=== PATIENT | female | born 1945 | race Caucasian/White ===

== ENCOUNTER 2022-07-26 08:04 | Inpatient (IN) | payer MEDICARE ==
[2022-07-26] MEDS ORDERED: FLU VACC QS2022-23(65YR UP)/PF 240 MCG/0.7 ML SYRINGE IM ONE (19:15)
[2022-07-26] MEDS ORDERED: Non-Formulary Item 1 EACH (Aluminum & Magnesium Hydroxide [Maalox] 30 ML Udcup) PO PRN (19:19)
[2022-07-26] MEDS ORDERED: Guaifenesin DM 100-10/5 ML UDCUP PO PRN (19:19)
[2022-07-26] MEDS ORDERED: Acetaminophen 325 MG TAB PO PRN (19:25)
[2022-07-26] MEDS ORDERED: Ondansetron ODT 4 MG TAB PO PRN (19:25)
[2022-07-26] MEDS ORDERED: Bisacodyl 5 MG TAB PO PRN (19:25)
[2022-07-26] MEDS ORDERED: Acetaminophen 650 MG Suppository PR PRN (19:25)
[2022-07-26] MEDS ORDERED: Bisacodyl 10 MG SUPP PR PRN (19:25)
[2022-07-26] MEDS ORDERED: Artificial Tear Sol 15 ML BOT EA EYE PRN (19:29)
[2022-07-26] MEDS ORDERED: Promethazine HCl 25 MG SUPP PR PRN (19:29)
[2022-07-26] MEDS ORDERED: Sodium Chloride 0.65% Nasal 44 ML BOT EA NARE PRN (19:29)
[2022-07-26] MEDS: Mirtazapine 15 MG TAB PO SCH (21:21)
[2022-07-26] MEDS: guaiFENesin ER 600 MG TAB PO SCH (21:21)
[2022-07-26] MEDS: Heparin 5,000 UNITS/ML VIAL SC SCH (21:25)
[2022-07-26 22:38] LABS: SARS-CoV-2 NAA Rapid Test Not Detected (NotDetected)
[2022-07-26] MEDS ORDERED: Ondansetron ODT 4 MG TAB SL PRN (22:45)
[2022-07-27] MEDS: Levothyroxine Sodium 88 MCG TAB PO SCH (05:09)
[2022-07-27] MEDS: Senokot S 8.6-50 MG TAB PO PRN (05:12)
[2022-07-27 06:03] LABS: #Basophils 0.1 thou/uL (0.0-0.2); #Lymphocytes 1.3 thou/uL (1.20-3.40); #Monocytes 0.9 thou/uL (0.11-0.59); #Neutrophils 13.2 thou/uL (1.40-6.50); %Basophils 0.4 % (0.0-1.0); %Eosinophils 0.3 % (0.0-10.0); %Lymphocytes 8.3 % (21.0-51.0); %Neutrophils 84.9 % (42.0-75.0); Hemoglobin 8.3 g/dL (12.0-16.0); Hypochromia MODERATE=16-30 cells (100X) (0-5/hpf); MDiff Complete? YES; Mean Corpuscular HGB CONC 29.3 g/dL (32.0-36.0); Mean Corpuscular Hemoglobin 19.6 pg (27.0-31.0); Mean Corpuscular Volume 66.9 fl (78.0-98.0); Mean Platelet Volume 7.4 fL (7.4-10.4); Microcytosis MODERATE=15-30 cells (100X) (0-5/hpf); Ovalocytes SLIGHT = 2-5 cells (100X) (0-1/hpf); Platelet Count 263 thou/uL (130-400); Red Blood Cell (RBC) Count 4.23 mill/uL (4.20-5.40); Tear Drops SLIGHT = 2-5 cells (100X) (0-1/hpf); White Blood Cell (WBC) Count 15.6 thou/uL (4.8-10.8)
[2022-07-27 06:10] LABS: ALT (SGPT) 24 U/L (8-55); AST (SGOT) 16 U/L (5-34); Albumin 3.8 g/dL (3.4-4.8); Alkaline Phosphatase 58 U/L (40-110); Anion Gap 16 mmol/L (10-20); BUN (Urea Nitrogen) 68 mg/dL (9.8-20.1); Calc. Creatinine Clearance 20 mL/min (70-130); Carbon Dioxide 19 mmol/L (23-31); Chloride 107 mmol/L (98-107); Estimated GFR 25; Globulin 3.7 g/dL (2.4-3.5); Glucose 91 mg/dL (83-110); Protein, Total 7.5 g/dL (5.8-8.1); Sodium 138 mmol/L (136-145)
[2022-07-27] MEDS: guaiFENesin ER 600 MG TAB PO SCH ×2 (08:55→21:03)
[2022-07-27] MEDS: predniSONE 20 MG TAB PO SCH (08:55)
[2022-07-27] MEDS: Heparin 5,000 UNITS/ML VIAL SC SCH ×2 (08:56→21:05)
[2022-07-27] MEDS ORDERED: Mometasone 200 MCG/Formoterol 5 MCG 120 PUFF INHALER INH SCH (09:00)
[2022-07-27] MEDS ORDERED: Mometasone/Formoterol 200/5 60 PUFF INH SCH (09:45)
[2022-07-27] MEDS: Benzonatate 100 MG CAP PO PRN (15:16)
[2022-07-27] MEDS: Sertraline 100 MG TAB PO SCH (17:28)
[2022-07-27] MEDS: Mag-Al Plus 1200 MG/1200 MG/120 MG/30 ML UDCUP PO PRN (18:06)
[2022-07-27] MEDS: Mometasone/Formoterol 200/5 60 PUFF INH SCH (21:01)
[2022-07-27] MEDS: Folic Acid 1 MG TAB PO SCH (21:03)
[2022-07-27] MEDS: Mirtazapine 15 MG TAB PO SCH (21:03)
[2022-07-28] MEDS: Levothyroxine Sodium 88 MCG TAB PO SCH (05:31)
[2022-07-28] MEDS: predniSONE 20 MG TAB PO SCH (09:34)
[2022-07-28] MEDS: Mometasone/Formoterol 200/5 60 PUFF INH SCH ×2 (09:35→21:33)
[2022-07-28] MEDS: guaiFENesin ER 600 MG TAB PO SCH ×2 (09:37→21:35)
[2022-07-28] MEDS: Heparin 5,000 UNITS/ML VIAL SC SCH ×2 (09:37→21:35)
[2022-07-28] MEDS: Sertraline 100 MG TAB PO SCH (17:43)
[2022-07-28] MEDS: Folic Acid 1 MG TAB PO SCH (21:34)
[2022-07-28] MEDS: Mirtazapine 15 MG TAB PO SCH (21:35)
[2022-07-29] MEDS: Levothyroxine Sodium 88 MCG TAB PO SCH (06:04)
[2022-07-29 06:07] LABS: #Basophils 0.1 thou/uL (0.0-0.2); #Lymphocytes 1.4 thou/uL (1.20-3.40); #Monocytes 0.8 thou/uL (0.11-0.59); #Neutrophils 13.2 thou/uL (1.40-6.50); %Basophils 0.5 % (0.0-1.0); %Eosinophils 0.3 % (0.0-10.0); %Lymphocytes 8.9 % (21.0-51.0); %Monocytes 5.4 % (0.0-10.0); Hemoglobin 7.6 g/dL (12.0-16.0); Mean Corpuscular HGB CONC 30.1 g/dL (32.0-36.0); Mean Corpuscular Hemoglobin 19.9 pg (27.0-31.0); Mean Corpuscular Volume 66.3 fl (78.0-98.0); Mean Platelet Volume 8.9 fL (7.4-10.4); Platelet Count 237 thou/uL (130-400); RBC Distribution Width 17.1 % (11.5-14.5); Red Blood Cell (RBC) Count 3.82 mill/uL (4.20-5.40); White Blood Cell (WBC) Count 15.6 thou/uL (4.8-10.8)
[2022-07-29 06:21] LABS: ALT (SGPT) 27 U/L (8-55); AST (SGOT) 14 U/L (5-34); Albumin 3.6 g/dL (3.4-4.8); Alkaline Phosphatase 52 U/L (40-110); Anion Gap 14 mmol/L (10-20); BUN (Urea Nitrogen) 64 mg/dL (9.8-20.1); Bilirubin, Total 0.8 mg/dL (0.2-1.2); Calc. Creatinine Clearance 20 mL/min (70-130); Calcium 9.1 mg/dL (7.8-10.44); Carbon Dioxide 17 mmol/L (23-31); Chloride 109 mmol/L (98-107); Estimated GFR 26; Globulin 3.3 g/dL (2.4-3.5); Glucose 88 mg/dL (83-110); Potassium 4.2 mmol/L (3.5-5.1); Protein, Total 6.9 g/dL (5.8-8.1); Sodium 136 mmol/L (136-145)
[2022-07-29] MEDS: Heparin 5,000 UNITS/ML VIAL SC SCH (09:36)
[2022-07-29] MEDS: Mometasone/Formoterol 200/5 60 PUFF INH SCH ×2 (09:36→21:17)
[2022-07-29] MEDS: predniSONE 20 MG TAB PO SCH (09:39)
[2022-07-29] MEDS: guaiFENesin ER 600 MG TAB PO SCH ×2 (09:40→21:27)
[2022-07-29] MEDS: Benzonatate 100 MG CAP PO PRN (15:36)
[2022-07-29] MEDS: Cepastat Lozenges 1 LOZ PO PRN (16:32)
[2022-07-29] MEDS: Sertraline 100 MG TAB PO SCH (16:32)
[2022-07-29] MEDS: Mirtazapine 15 MG TAB PO SCH (21:26)
[2022-07-29] MEDS: Folic Acid 1 MG TAB PO SCH (21:26)
[2022-07-30 05:44] LABS: #Eosinphils 0.1 thou/uL (0.0-0.7); #Lymphocytes 1.4 thou/uL (1.20-3.40); #Monocytes 0.8 thou/uL (0.11-0.59); #Neutrophils 11.9 thou/uL (1.40-6.50); %Basophils 0.2 % (0.0-1.0); %Eosinophils 0.4 % (0.0-10.0); %Lymphocytes 10.1 % (21.0-51.0); %Monocytes 5.7 % (0.0-10.0); %Neutrophils 83.6 % (42.0-75.0); Hemoglobin 8.1 g/dL (12.0-16.0); Mean Corpuscular HGB CONC 30.1 g/dL (32.0-36.0); Mean Corpuscular Hemoglobin 19.9 pg (27.0-31.0); Mean Corpuscular Volume 66.1 fl (78.0-98.0); Mean Platelet Volume 7.7 fL (7.4-10.4); Platelet Count 229 thou/uL (130-400); RBC Distribution Width 17.4 % (11.5-14.5); Red Blood Cell (RBC) Count 4.06 mill/uL (4.20-5.40); White Blood Cell (WBC) Count 14.3 thou/uL (4.8-10.8)
[2022-07-30] MEDS: Levothyroxine Sodium 88 MCG TAB PO SCH (05:44)
[2022-07-30] MEDS: predniSONE 5 MG TAB PO SCH (08:07)
[2022-07-30] MEDS: Mometasone/Formoterol 200/5 60 PUFF INH SCH ×2 (08:07→20:18)
[2022-07-30] MEDS: guaiFENesin ER 600 MG TAB PO SCH ×2 (08:07→20:17)
[2022-07-30] MEDS ORDERED: Lactated Ringer's 500 ML IV SCH (12:00)
[2022-07-30] MEDS ORDERED: Enoxaparin Sodium 60 MG/0.6 ML SYRINGE SC SCH (12:30)
[2022-07-30 12:53] LABS: Troponin I Less than 0.010 ng/mL (< 0.028)
[2022-07-30] MEDS ORDERED: Heparin 5,000 UNITS/ML VIAL SC SCH (15:00)
[2022-07-30] MEDS: Sertraline 100 MG TAB PO SCH (16:57)
[2022-07-30] MEDS: Rosuvastatin 10 MG TAB PO SCH (20:18)
[2022-07-30] MEDS: Mirtazapine 15 MG TAB PO SCH (20:18)
[2022-07-30] MEDS: Folic Acid 1 MG TAB PO SCH (20:18)
[2022-07-31] MEDS: Levothyroxine Sodium 88 MCG TAB PO SCH (05:36)
[2022-07-31 05:50] LABS: #Basophils 0.1 thou/uL (0.0-0.2); #Eosinphils 0.1 thou/uL (0.0-0.7); #Lymphocytes 0.7 thou/uL (1.20-3.40); #Monocytes 1.2 thou/uL (0.11-0.59); #Neutrophils 15.6 thou/uL (1.40-6.50); %Basophils 0.7 % (0.0-1.0); %Eosinophils 0.4 % (0.0-10.0); %Lymphocytes 4.1 % (21.0-51.0); %Monocytes 6.7 % (0.0-10.0); %Neutrophils 88.3 % (42.0-75.0); Hemoglobin 7.6 g/dL (12.0-16.0); Mean Corpuscular HGB CONC 30.8 g/dL (32.0-36.0); Mean Corpuscular Hemoglobin 20.2 pg (27.0-31.0); Mean Corpuscular Volume 65.6 fl (78.0-98.0); Mean Platelet Volume 7.9 fL (7.4-10.4); Platelet Count 206 thou/uL (130-400); RBC Distribution Width 17.3 % (11.5-14.5); Red Blood Cell (RBC) Count 3.78 mill/uL (4.20-5.40); White Blood Cell (WBC) Count 17.7 thou/uL (4.8-10.8)
[2022-07-31 05:57] LABS: ALT (SGPT) 34 U/L (8-55); AST (SGOT) 20 U/L (5-34); Albumin 3.5 g/dL (3.4-4.8); Alkaline Phosphatase 56 U/L (40-110); Anion Gap 13 mmol/L (10-20); BUN (Urea Nitrogen) 41 mg/dL (9.8-20.1); Calc. Creatinine Clearance 24 mL/min (70-130); Calcium 9.1 mg/dL (7.8-10.44); Carbon Dioxide 17 mmol/L (23-31); Chloride 111 mmol/L (98-107); Estimated GFR 32; Globulin 3.4 g/dL (2.4-3.5); Glucose 111 mg/dL (83-110); Potassium 4.2 mmol/L (3.5-5.1); Protein, Total 6.9 g/dL (5.8-8.1); Sodium 137 mmol/L (136-145)
[2022-07-31] MEDS: Mometasone/Formoterol 200/5 60 PUFF INH SCH ×2 (07:35→21:04)
[2022-07-31] MEDS: guaiFENesin ER 600 MG TAB PO SCH ×2 (08:50→21:05)
[2022-07-31] MEDS: Enoxaparin Sodium 60 MG/0.6 ML SYRINGE SC SCH (08:50)
[2022-07-31] MEDS: Aspirin 81 mg Enteric Coated Tablet PO SCH (08:51)
[2022-07-31] MEDS: predniSONE 5 MG TAB PO SCH (08:51)
[2022-07-31] MEDS: Sertraline 100 MG TAB PO SCH (17:00)
[2022-07-31] MEDS: Folic Acid 1 MG TAB PO SCH (21:05)
[2022-07-31] MEDS: Rosuvastatin 10 MG TAB PO SCH (21:06)
[2022-07-31] MEDS: Mirtazapine 15 MG TAB PO SCH (21:06)
[2022-08-01 05:56] LABS: #Basophils 0.1 thou/uL (0.0-0.2); #Eosinphils 0.1 thou/uL (0.0-0.7); #Monocytes 0.9 thou/uL (0.11-0.59); #Neutrophils 12.3 thou/uL (1.40-6.50); %Basophils 0.4 % (0.0-1.0); %Eosinophils 0.7 % (0.0-10.0); %Lymphocytes 6.9 % (21.0-51.0); %Monocytes 5.9 % (0.0-10.0); %Neutrophils 86.1 % (42.0-75.0); Hemoglobin 7.5 g/dL (12.0-16.0); Mean Corpuscular HGB CONC 29.9 g/dL (32.0-36.0); Mean Corpuscular Hemoglobin 19.9 pg (27.0-31.0); Mean Corpuscular Volume 66.4 fl (78.0-98.0); Platelet Count 200 thou/uL (130-400); Red Blood Cell (RBC) Count 3.76 mill/uL (4.20-5.40); White Blood Cell (WBC) Count 14.3 thou/uL (4.8-10.8)
[2022-08-01] MEDS: Levothyroxine Sodium 88 MCG TAB PO SCH (06:14)
[2022-08-01] MEDS: Mometasone/Formoterol 200/5 60 PUFF INH SCH ×2 (07:54→21:14)
[2022-08-01] MEDS: guaiFENesin ER 600 MG TAB PO SCH ×2 (07:56→21:09)
[2022-08-01] MEDS: Aspirin 81 mg Enteric Coated Tablet PO SCH (07:56)
[2022-08-01] MEDS: predniSONE 5 MG TAB PO SCH (07:56)
[2022-08-01] MEDS: Enoxaparin Sodium 60 MG/0.6 ML SYRINGE SC SCH (07:58)
[2022-08-01] MEDS: Sertraline 100 MG TAB PO SCH (16:45)
[2022-08-01] MEDS: Mirtazapine 15 MG TAB PO SCH (21:09)
[2022-08-01] MEDS: Rosuvastatin 10 MG TAB PO SCH (21:09)
[2022-08-01] MEDS: Folic Acid 1 MG TAB PO SCH (21:09)
[2022-08-02 05:54] LABS: #Basophils 0.1 thou/uL (0.0-0.2); #Eosinphils 0.1 thou/uL (0.0-0.7); #Lymphocytes 0.9 thou/uL (1.20-3.40); #Monocytes 0.9 thou/uL (0.11-0.59); #Neutrophils 12.1 thou/uL (1.40-6.50); %Basophils 0.6 % (0.0-1.0); %Eosinophils 0.6 % (0.0-10.0); %Lymphocytes 6.4 % (21.0-51.0); %Monocytes 6.4 % (0.0-10.0); %Neutrophils 86.1 % (42.0-75.0); Hemoglobin 7.5 g/dL (12.0-16.0); Mean Corpuscular HGB CONC 29.5 g/dL (32.0-36.0); Mean Corpuscular Hemoglobin 19.7 pg (27.0-31.0); Mean Corpuscular Volume 66.7 fl (78.0-98.0); Mean Platelet Volume 8.3 fL (7.4-10.4); Platelet Count 205 thou/uL (130-400); Red Blood Cell (RBC) Count 3.81 mill/uL (4.20-5.40)
[2022-08-02] MEDS: Levothyroxine Sodium 88 MCG TAB PO SCH (06:07)
[2022-08-02 06:12] LABS: ALT (SGPT) 33 U/L (8-55); AST (SGOT) 15 U/L (5-34); Albumin 3.3 g/dL (3.4-4.8); Alkaline Phosphatase 52 U/L (40-110); Anion Gap 15 mmol/L (10-20); BUN (Urea Nitrogen) 36 mg/dL (9.8-20.1); Bilirubin, Total 0.8 mg/dL (0.2-1.2); Calc. Creatinine Clearance 24 mL/min (70-130); Calcium 8.7 mg/dL (7.8-10.44); Carbon Dioxide 16 mmol/L (23-31); Chloride 108 mmol/L (98-107); Estimated GFR 31; Globulin 3.5 g/dL (2.4-3.5); Glucose 102 mg/dL (83-110); Protein, Total 6.8 g/dL (5.8-8.1); Sodium 135 mmol/L (136-145)
[2022-08-02] MEDS: predniSONE 5 MG TAB PO SCH (07:56)
[2022-08-02] MEDS: guaiFENesin ER 600 MG TAB PO SCH ×2 (07:56→20:58)
[2022-08-02] MEDS: Mometasone/Formoterol 200/5 60 PUFF INH SCH ×2 (07:57→20:56)
[2022-08-02] MEDS: Enoxaparin Sodium 60 MG/0.6 ML SYRINGE SC SCH (07:58)
[2022-08-02] MEDS: Aspirin 81 mg Enteric Coated Tablet PO SCH (08:00)
[2022-08-02] MEDS ORDERED: EPINEPHrine 1 MG/ML AMP IVP PRN (13:20)
[2022-08-02] MEDS: Senokot S 8.6-50 MG TAB PO PRN (16:52)
[2022-08-02] MEDS: Sertraline 100 MG TAB PO SCH (16:52)
[2022-08-02] MEDS: Folic Acid 1 MG TAB PO SCH (20:57)
[2022-08-02] MEDS: Rosuvastatin 10 MG TAB PO SCH (20:58)
[2022-08-02] MEDS: Mirtazapine 15 MG TAB PO SCH (20:58)
[2022-08-03 02:33] VITALS: BMI 23.8
[2022-08-03] MEDS: Levothyroxine Sodium 88 MCG TAB PO SCH (06:08)
[2022-08-03] MEDS: predniSONE 5 MG TAB PO SCH (08:45)
[2022-08-03] MEDS: Mometasone/Formoterol 200/5 60 PUFF INH SCH ×2 (08:46→20:55)
[2022-08-03] MEDS: guaiFENesin ER 600 MG TAB PO SCH ×2 (08:46→20:56)
[2022-08-03] MEDS: Aspirin 81 mg Enteric Coated Tablet PO SCH (08:46)
[2022-08-03] MEDS: Enoxaparin Sodium 60 MG/0.6 ML SYRINGE SC SCH (08:47)
[2022-08-03 10:21] LABS: Hemoglobin 7.5 g/dL (12.0-16.0)
[2022-08-03] MEDS: Cepastat Lozenges 1 LOZ PO PRN (13:10)
[2022-08-03] MEDS: Sertraline 100 MG TAB PO SCH (16:03)
[2022-08-03] MEDS: Mag-Al Plus 1200 MG/1200 MG/120 MG/30 ML UDCUP PO PRN (17:05)
[2022-08-03] MEDS: Folic Acid 1 MG TAB PO SCH (20:57)
[2022-08-03] MEDS: Mirtazapine 15 MG TAB PO SCH (20:57)
[2022-08-03] MEDS: Rosuvastatin 10 MG TAB PO SCH (20:57)
[2022-08-04] MEDS: Benzonatate 100 MG CAP PO PRN ×2 (02:14→12:46)
[2022-08-04] MEDS: Levothyroxine Sodium 88 MCG TAB PO SCH (05:54)
[2022-08-04 06:15] LABS: ALT (SGPT) 27 U/L (8-55); AST (SGOT) 12 U/L (5-34); Albumin 3.3 g/dL (3.4-4.8); Alkaline Phosphatase 54 U/L (40-110); Anion Gap 13 mmol/L (10-20); BUN (Urea Nitrogen) 31 mg/dL (9.8-20.1); Bilirubin, Total 0.7 mg/dL (0.2-1.2); Calc. Creatinine Clearance 26 mL/min (70-130); Calcium 8.7 mg/dL (7.8-10.44); Carbon Dioxide 17 mmol/L (23-31); Chloride 109 mmol/L (98-107); Estimated GFR 34; Globulin 3.3 g/dL (2.4-3.5); Glucose 91 mg/dL (83-110); Potassium 3.7 mmol/L (3.5-5.1); Protein, Total 6.6 g/dL (5.8-8.1); Sodium 135 mmol/L (136-145)
[2022-08-04 06:54] LABS: #Basophils 0.1 thou/uL (0.0-0.2); #Eosinphils 0.1 thou/uL (0.0-0.7); #Lymphocytes 1.1 thou/uL (1.20-3.40); #Monocytes 0.9 thou/uL (0.11-0.59); #Neutrophils 12.3 thou/uL (1.40-6.50); %Basophils 0.4 % (0.0-1.0); %Eosinophils 0.4 % (0.0-10.0); %Lymphocytes 7.4 % (21.0-51.0); %Monocytes 5.9 % (0.0-10.0); %Neutrophils 85.9 % (42.0-75.0); Hemoglobin 7.2 g/dL (12.0-16.0); Mean Corpuscular HGB CONC 29.7 g/dL (32.0-36.0); Mean Corpuscular Hemoglobin 19.5 pg (27.0-31.0); Mean Corpuscular Volume 65.8 fl (78.0-98.0); Mean Platelet Volume 7.1 fL (7.4-10.4); Platelet Count 202 10x3/uL (130-400); Red Blood Cell (RBC) Count 3.71 mill/uL (4.20-5.40); White Blood Cell (WBC) Count 14.3 10x3/uL (4.8-10.8)
[2022-08-04] MEDS: guaiFENesin ER 600 MG TAB PO SCH ×2 (07:53→20:20)
[2022-08-04] MEDS: Aspirin 81 mg Enteric Coated Tablet PO SCH (07:53)
[2022-08-04] MEDS: predniSONE 5 MG TAB PO SCH (07:54)
[2022-08-04] MEDS: Mometasone/Formoterol 200/5 60 PUFF INH SCH ×2 (07:55→20:24)
[2022-08-04] MEDS: Enoxaparin Sodium 60 MG/0.6 ML SYRINGE SC SCH (07:55)
[2022-08-04] MEDS: Calcium Carbonate 500 MG ChewTAB PO PRN (08:16)
[2022-08-04] MEDS: Sertraline 100 MG TAB PO SCH (17:57)
[2022-08-04] MEDS: Rosuvastatin 10 MG TAB PO SCH (20:20)
[2022-08-04] MEDS: Folic Acid 1 MG TAB PO SCH (20:20)
[2022-08-04] MEDS: Mirtazapine 15 MG TAB PO SCH (20:20)
[2022-08-05] MEDS: Senokot S 8.6-50 MG TAB PO PRN (05:15)
[2022-08-05] MEDS: Levothyroxine Sodium 88 MCG TAB PO SCH (05:16)
[2022-08-05] MEDS: Mometasone/Formoterol 200/5 60 PUFF INH SCH ×2 (07:41→20:49)
[2022-08-05] MEDS: guaiFENesin ER 600 MG TAB PO SCH ×2 (07:41→20:55)
[2022-08-05] MEDS: Enoxaparin Sodium 60 MG/0.6 ML SYRINGE SC SCH (07:41)
[2022-08-05] MEDS: Aspirin 81 mg Enteric Coated Tablet PO SCH (07:41)
[2022-08-05] MEDS: predniSONE 5 MG TAB PO SCH (07:41)
[2022-08-05 09:46] LABS: Bilirubin Negative (Negative); Blood, Urine Negative (Negative); Clarity Clear (Clear); Glucose, Urine (Dipstick) Negative (Negative); Ketone, Urine Negative (Negative); Leukocyte Negative (Negative); Nitrite Negative (Negative); Protein, Urine (Dipstick) Trace mg/dL (Neg-Trace); Specific Gravity, Urine 1.015 (1.005-1.030); Urobilinogen 0.2 mg/dL (Less than 2); pH, Urine 5.5 (5.0-9.0)
[2022-08-05 09:50] LABS: Urine Culture Reflex No No
[2022-08-05 09:58] LABS: Bacteria/HPF None Seen HPF (None Seen); RBC/HPF None Seen HPF (0-3); Squamous Epithelial None Seen HPF (0-3); WBC/HPF None Seen HPF (0-3)
[2022-08-05] MEDS: Sertraline 100 MG TAB PO SCH (17:02)
[2022-08-05 17:09] LABS: Anion Gap 14 mmol/L (10-20); BUN (Urea Nitrogen) 25 mg/dL (9.8-20.1); Calc. Creatinine Clearance 29 mL/min (70-130); Calcium 8.5 mg/dL (7.8-10.44); Carbon Dioxide 16 mmol/L (23-31); Chloride 110 mmol/L (98-107); Estimated GFR 40; Glucose 103 mg/dL (83-110); Potassium 3.8 mmol/L (3.5-5.1); Sodium 136 mmol/L (136-145)
[2022-08-05 17:37] LABS: Hemoglobin 6.7 g/dL (12.0-16.0); Mean Corpuscular HGB CONC 30.2 g/dL (32.0-36.0); Mean Corpuscular Hemoglobin 19.8 pg (27.0-31.0); Mean Corpuscular Volume 65.7 fl (78.0-98.0); Mean Platelet Volume 6.9 fL (7.4-10.4); Platelet Count 223 10x3/uL (130-400); RBC Distribution Width 17.1 % (11.5-14.5); Red Blood Cell (RBC) Count 3.35 mill/uL (4.20-5.40)
[2022-08-05 17:38] LABS: MDiff Complete? YES; Manual Diff?? YES
[2022-08-05 17:40] LABS: Band 5 % (5-11); Lymphocytes 11 % (21-51); Monocytes 1 % (0-10); Neutrophil 82 % (42-75); Reactive Lymphocytes 1 % (0-10)
[2022-08-05 17:41] LABS: Anisocytosis SLIGHT = 6-15 cells (100X) (0-5/hpf); Platelet Morphology Comment Appears Adequate
[2022-08-05 17:42] LABS: Elliptocytes SLIGHT = 2-5 cells (100X) (0-1/hpf); Hypochromia SLIGHT = 6-15 cells (100X) (0-5/hpf); Macrocytosis SLIGHT = 6-15 cells (100X) (0-5/hpf); Microcytosis SLIGHT = 6-15 cells (100X) (0-5/hpf); Tear Drops SLIGHT = 2-5 cells (100X) (0-1/hpf)
[2022-08-05 17:43] LABS: Target Cells SLIGHT = 2-5 cells (100X) (0-1/hpf)
[2022-08-05] MEDS: Calcium Carbonate 500 MG ChewTAB PO PRN (18:06)
[2022-08-05] MEDS ORDERED: Furosemide 20 MG/2 ML VIAL SLOW IVP SCH (20:00)
[2022-08-05] MEDS: Apixaban 5 MG TAB PO SCH (20:48)
[2022-08-05] MEDS: Rosuvastatin 10 MG TAB PO SCH (20:48)
[2022-08-05] MEDS: Folic Acid 1 MG TAB PO SCH (20:48)
[2022-08-05] MEDS: Mirtazapine 15 MG TAB PO SCH (20:55)
[2022-08-06] MEDS: Levothyroxine Sodium 88 MCG TAB PO SCH (05:54)
[2022-08-06 07:06] LABS: ALT (SGPT) 29 U/L (8-55); AST (SGOT) 14 U/L (5-34); Albumin 3.3 g/dL (3.4-4.8); Alkaline Phosphatase 52 U/L (40-110); Anion Gap 14 mmol/L (10-20); BUN (Urea Nitrogen) 20 mg/dL (9.8-20.1); Bilirubin, Total 0.8 mg/dL (0.2-1.2); Calc. Creatinine Clearance 28 mL/min (70-130); Carbon Dioxide 17 mmol/L (23-31); Chloride 110 mmol/L (98-107); Estimated GFR 38; Globulin 3.5 g/dL (2.4-3.5); Glucose 103 mg/dL (83-110); Potassium 3.4 mmol/L (3.5-5.1); Protein, Total 6.8 g/dL (5.8-8.1); Sodium 138 mmol/L (136-145)
[2022-08-06 07:17] LABS: #Basophils 0.1 thou/uL (0.0-0.2); #Eosinphils 0.1 thou/uL (0.0-0.7); #Monocytes 0.9 thou/uL (0.11-0.59); #Neutrophils 11.9 thou/uL (1.40-6.50); %Basophils 0.4 % (0.0-1.0); %Eosinophils 0.5 % (0.0-10.0); %Lymphocytes 7.3 % (21.0-51.0); %Monocytes 6.2 % (0.0-10.0); %Neutrophils 85.6 % (42.0-75.0); Hemoglobin 8.9 g/dL (12.0-16.0); Mean Corpuscular HGB CONC 31.2 g/dL (32.0-36.0); Mean Corpuscular Hemoglobin 21.6 pg (27.0-31.0); Mean Corpuscular Volume 69.1 fl (78.0-98.0); Platelet Count 219 10x3/uL (130-400); RBC Distribution Width 20.1 % (11.5-14.5); Red Blood Cell (RBC) Count 4.11 mill/uL (4.20-5.40); White Blood Cell (WBC) Count 13.9 10x3/uL (4.8-10.8)
[2022-08-06] MEDS: predniSONE 5 MG TAB PO SCH (09:44)
[2022-08-06] MEDS: Apixaban 5 MG TAB PO SCH (09:44)
[2022-08-06] MEDS: guaiFENesin ER 600 MG TAB PO SCH (09:44)
[2022-08-06] MEDS: Aspirin 81 mg Enteric Coated Tablet PO SCH (09:44)
[2022-08-06] MEDS: Mometasone/Formoterol 200/5 60 PUFF INH SCH (09:45)
[2022-08-06 12:46] VITALS: BP 118/56; TEMP 98.6
== END 2022-08-06 15:31 | disposition home health service (06) | DRG 947 ==
LOC: NAV ACUTE 17:51
PROVIDERS: ADMIT Family Medicine; ATTEND Family Medicine
PROC: 30233N1 Transfusion of Nonautologous Red Blood Cells into Peripheral Vein, Percutaneous Approach (ICD-10-PCS; principal; 2022-08-05)
DX: R53.1 Weakness (principal); I26.99 Other pulmonary embolism without acute cor pulmonale; J96.11 Chronic respiratory failure with hypoxia; J96.12 Chronic respiratory failure with hypercapnia; N18.4 Chronic kidney disease, stage 4 (severe); Z20.822 Contact with and (suspected) exposure to COVID-19; J44.9 Chronic obstructive pulmonary disease, unspecified; I12.9 Hypertensive chronic kidney disease with stage 1 through stage 4 chronic kidney disease, or unspecified chronic kidney disease; E78.5 Hyperlipidemia, unspecified; E03.9 Hypothyroidism, unspecified; M81.0 Age-related osteoporosis without current pathological fracture; R53.81 Other malaise; K21.9 Gastro-esophageal reflux disease without esophagitis; D56.3 Thalassemia minor; F32.A Depression, unspecified; R13.10 Dysphagia, unspecified; D63.1 Anemia in chronic kidney disease; Z90.710 Acquired absence of both cervix and uterus; Z99.81 Dependence on supplemental oxygen; Z79.899 Other long term (current) drug therapy; Z79.82 Long term (current) use of aspirin; Z79.890 Hormone replacement therapy; Z79.52 Long term (current) use of systemic steroids; Z82.49 Family history of ischemic heart disease and other diseases of the circulatory system; Z83.6 Family history of other diseases of the respiratory system; Z87.891 Personal history of nicotine dependence
CPT/HCPCS: 36415; 36430; 71045; 71046; 80048; 80053; 81001; 84145; 84484; 85014; 85018; 85025; 85379; 86850; 86900; 86901; 87804; 87811; 94640; J1644; J1650; J1940; J7120; J7512; J7620; P9016; U0002